=== PATIENT | male | born 1980 | race African-American/Black ===

== ENCOUNTER 2019-01-15 15:48 | Emergency (ER) | payer OTHER ==
[~2019-01-15] VITALS: Ht 175.3 cm; Wt 90.7 kg
[2019-01-15 15:48] VITALS: BP 124/72
== END 2019-01-15 16:38 | disposition home or self-care (01) ==
LOC: ER 15:48
DX: S61.214A Laceration without foreign body of right ring finger without damage to nail, initial encounter (principal); F17.210 Nicotine dependence, cigarettes, uncomplicated; Z88.1 Allergy status to other antibiotic agents; W26.8XXA Contact with other sharp object(s), not elsewhere classified, initial encounter; Y93.89 Activity, other specified; Y92.89 Other specified places as the place of occurrence of the external cause; Y99.8 Other external cause status